=== PATIENT | male | born 1950 | race Caucasian/White ===

== ENCOUNTER 2016-04-22 09:02 | Emergency (ER) | payer OTHER, MEDICARE ==
[2016-04-22 09:26] VITALS: BP 142/66; PULSE 78; RESP 18; TEMP 99; O2SAT 98
[2016-04-22] MEDS ORDERED: TDAP ADULT 0.5 ML INJ (BOOSTRIX) IM ONE (09:30)
--- NOTE | 2016-04-22 10:13 | UCPHY ---
H & P Time Seen by Provider: 04/22/16 10:12 Patient Type: New HPI/ROS: Chief complaint. Hand laceration HPI. 65-year-old male though drilling a piece of metal yesterday and trying to enlarge the whole the drill bit slipped and punctured his left hand between the thumb and index finger. Today it is increasingly painful somewhat red and swollen. No focal weakness or paresthesias. Possible retained foreign body of metal shards. Patient is right handed ROS Constitutional. no fever/chills, no weakness Eyes. no problems with vision ENT. no sore throat, no nasal drainage Cardiovascular. no chest pain Respiratory. no shortness of breath, no cough Abdominal. no abdominal pain, no nausea/vomiting, no diarrhea . no problems urinating MS. Left hand laceration Skin. no rash Lymph. no swollen glands Neuro. no headache, no dizziness, no difficulty walking or with speech Past Medical/Surgical History: Past medical history significant for hypertension and dyslipidemia Social History: , nonsmoker, no alcohol Physical Exam: General Appearance: Alert well-developed male mild distress vital signs stable Eyes: Pupils equal and round no pallor or injection. ENT, Mouth: Mucous membranes are moist. Respiratory: There are no retractions, lungs are clear to auscultation. Cardiovascular: Regular rate and rhythm. Gastrointestinal: Abdomen is soft and nontender, no masses, bowel sounds normal. Neurological: Awake and alert, sensory and motor exams grossly normal. Skin: Puncture wound between the 1st and 2nd digits on the left hand. Mild swelling and mild erythema. No lymphangitis. Musculoskeletal: Neck is supple nontender. Extremities symmetrical, full range of motion. Psychiatric: Patient is oriented X 3, there is no agitation. Constitutional: Initial Vital Signs Temperature (C) 37.2 C 04/22/16 09:20 Heart Rate 78 04/22/16 09:20 Respiratory Rate 18 04/22/16 09:20 Blood Pressure 142/66 H 04/22/16 09:20 O2 Sat (%) 98 04/22/16 09:20 O2 Delivery Mode Room Air Allergies/Adverse Reactions: No Known Allergies Allergy (Unverified 04/22/16 09:19) Home Medications: Medication Instructions Recorded Cephalexin [Keflex (*)] 500 mg PO TID #21 cap 04/22/16 Lipitor 04/22/16 Lisiinopril 04/22/16 MDM/Departure - MDM Diagnostics: X-ray right hand shows no evidence of fracture or foreign body Medications Given: Discontinued Medications Diphtheria/Tetanus/Acell Pertussis (Boostrix) 0.5 ml IM .ONCE ONE Stop: 04/22/16 09:31 Last Admin: 04/22/16 10:06 Dose: 0.5 ml ED Course/Re-evaluation: Re-evaluation 11:10 a.m.. Patient is stable. The patient and I discussed imaging study results. We discussed treatment plan including criteria for return importance of follow-up further evaluation. He expresses understanding and agreement Differential Diagnosis: There appears to be cellulitis evolving in the hand. I considered retained foreign body. I also considered fracture. The wound is 24 hours old and exhibiting early infection. We do not Wanna so this - Depart Disposition: Home, Routine, Self-Care Clinical Impression: Hand laceration Qualifiers: Encounter type: initial encounter Laterality: right Qualified Code(s): S61.411A - Laceration without foreign body of right hand, initial encounter Condition: Good Instructions: Cellulitis (ED) Additional Instructions: Cephalexin as antibiotic. Keep cut clean and dry. Return for worsening signs of infection and red streaks. Recheck in 2 days if not improving. Ibuprofen 600 mg every 6 hours for discomfort. Prescriptions: Cephalexin [Keflex (*)] 500 mg PO TID #21 cap Referrals: Salmoón Lopez MD [Primary Care Provider] - 2-3 days, if not improved - PQRS PQRS Measurement: 134: Depression screening and followup, PRIME MD-PHQ2 (12 years and older) Over the last 2 weeks, how often have you been bothered by any of the following problems? 1. Feeling down, depressed, or hopeless? 2. Little interest or pleasure in doing things? Patient answered no to both 1 and 2 130: Documentation of medications. Reviewed all patient medications, doses, route and frequency. 226: Do you smoke? No. 47: 65 and older: Advanced care planning. Patient designates surrogate decision maker as spouse .
== END 2016-04-22 11:33 | disposition home or self-care (01) ==
LOC: CED 09:02
DX: S61.412A Laceration without foreign body of left hand, initial encounter (principal); Y92.019 Unspecified place in single-family (private) house as the place of occurrence of the external cause; W45.8XXA Other foreign body or object entering through skin, initial encounter; Y99.8 Other external cause status; Y93.E9 Activity, other interior property and clothing maintenance; Z23 Encounter for immunization; W29.8XXA Contact with other powered hand tools and household machinery, initial encounter
CPT/HCPCS: 73130; 90471; 90715; G0463; 99203-PO

== ENCOUNTER → 2017-06-06 | Outpatient (CLI) | payer OTHER, MEDICARE | LOC: CIMAGING 09:18 | PROVIDERS: ATTEND Family Medicine | DX: M54.16 Radiculopathy, lumbar region (principal) | CPT/HCPCS: 72100-PO ==